=== PATIENT | female | born 1940 | race Asian ===

== ENCOUNTER 2018-04-05 11:08 | Inpatient (IN) | payer BC, OTHER ==
[~2018-04-05] VITALS: Ht 152.4 cm; Wt 56.0 kg
[2018-04-05 11:26] VITALS: Ht 152.4 cm; Wt 56.0 kg
[2018-04-05 11:59] LABS: PLATELET COUNT 362 x10^3mcL (130-400); RED CELL DISTRIBUTION WIDTH 13.4 % (11.5-14.5)
[2018-04-05 12:08] LABS: CALCIUM 10.5 mg/dL (8.5-10.1); CARBON DIOXIDE 17.5 mmol/L (21-32); CHLORIDE SERUM 102 mmol/L (98-107); CREATININE SERUM 1.4 mg/dL (0.6-1.0); GLUCOSE SERUM 232 mg/dL (74-106); POTASSIUM SERUM 4.2 mmol/L (3.5-5.1); SODIUM SERUM 137 mmol/L (136-145)
[2018-04-05 12:13] LABS: ALBUMIN 3.9 g/dL (3.4-5.0); ALKALINE PHOSPHATASE 205 U/L (46-116); ALT/SGPT 27 U/L (14-59); AST/SGOT 30 U/L (15-37); BILIRUBIN TOTAL 1.21 mg/dL (0.20-1.00); LIPASE 77 IU/L (73-393); TOTAL PROTEIN, SERUM 8.2 g/dL (6.4-8.2)
[2018-04-05 12:53] LABS: BAND NEUTROPHIL 45 % (0-10); MONOCYTE 5 % (0-7); SEGMENTED NEUTROPHILS 44 % (37-75)
[2018-04-05 12:54] LABS: PLATELET MORPHOLOGY PLATELETS NORMAL; rbc morphology (normal/abnorm) NORMAL (NORMAL)
[2018-04-05 16:34] LABS: UA SPECIFIC GRAVITY >=1.030 (1.005-1.035); microscopic required? YES; urine erythrocyte NEGATIVE (NEGATIVE)
[2018-04-05] MEDS ORDERED: ASPIRIN ADULT L81 M5 PO (18:30)
[2018-04-05] MEDS ORDERED: GOOD SENSE OMEP20 MG PO (18:30)
[2018-04-05] MEDS ORDERED: AMLODIPINE BESYL5 M2 PO (18:31)
[2018-04-05] MEDS ORDERED: PRAVACHOL20 MG PO (18:31)
[2018-04-05 18:42] LABS: MAGNESIUM 3.4 mg/dL (1.8-2.4); PHOSPHOROUS 6.3 mg/dL (2.5-4.9)
[2018-04-05 18:46] LABS: FREE T4 0.92 ng/dL (0.76-1.46); FREE THYROXINE INDEX 2.3 ug/dL (1.4-4.5); T3 TOTAL 0.73 ng/mL; T4(THYROXINE) 6.6 ug/dL (4.7-13.3)
[2018-04-05 19:02] VITALS: BP 99/53
[2018-04-05 20:12] LABS: CHOLESTEROL/HDL RATIO 2.6
[2018-04-06 00:06] VITALS: BP 92/50; BP 94/51
[2018-04-06 00:30] VITALS: BP 94/51
[2018-04-06 00:57] LABS: BASOPHIL % 0.1 % (0-2); PLATELET COUNT 189 x10^3mcL (130-400)
[2018-04-06 01:46] LABS: ALKALINE PHOSPHATASE 291 U/L (46-116); ALT/SGPT 37 U/L (14-59); AST/SGOT 98 U/L (15-37); BILIRUBIN TOTAL 0.63 mg/dL (0.20-1.00); CALCIUM 9.6 mg/dL (8.5-10.1); CARBON DIOXIDE 12.5 mmol/L (21-32); CHLORIDE SERUM 110 mmol/L (98-107); CREATININE SERUM 2.1 mg/dL (0.6-1.0); GLUCOSE SERUM 172 mg/dL (74-106); POTASSIUM SERUM 4.7 mmol/L (3.5-5.1); SODIUM SERUM 143 mmol/L (136-145)
[2018-04-06 01:53] LABS: ALBUMIN 2.4 g/dL (3.4-5.0); TOTAL PROTEIN, SERUM 5.6 g/dL (6.4-8.2)
[2018-04-06 02:55] VITALS: BP 86/49
[2018-04-06 03:55] VITALS: BP 103/70
[2018-04-06 04:45] VITALS: BP 65/52
== END 2018-04-06 10:23 | disposition expired | DRG 871 ==
LOC: ED 11:08 → IC 17:34 → DU 17:34 → IC 23:46
PROVIDERS: Emergency Medicine; Internal Medicine
PROC: 5A1935Z Respiratory Ventilation, Less than 24 Consecutive Hours (ICD-10-PCS; principal; 2018-04-06)
PROC: 0BH17EZ Insertion of Endotracheal Airway into Trachea, Via Natural or Artificial Opening (ICD-10-PCS; 2018-04-06)
PROC: 05HM33Z Insertion of Infusion Device into Right Internal Jugular Vein, Percutaneous Approach (ICD-10-PCS; 2018-04-06)
PROC: B543ZZZ Ultrasonography of Right Jugular Veins (ICD-10-PCS; 2018-04-06)
DX: A41.9 Sepsis, unspecified organism (principal); R65.21 Severe sepsis with septic shock; N17.0 Acute kidney failure with tubular necrosis; E43 Unspecified severe protein-calorie malnutrition; J69.0 Pneumonitis due to inhalation of food and vomit; N39.0 Urinary tract infection, site not specified; G93.1 Anoxic brain damage, not elsewhere classified; K56.41 Fecal impaction; I10 Essential (primary) hypertension; E86.0 Dehydration; E78.5 Hyperlipidemia, unspecified; R73.03 Prediabetes; K21.9 Gastro-esophageal reflux disease without esophagitis; R13.11 Dysphagia, oral phase; D75.1 Secondary polycythemia; E83.41 Hypermagnesemia; E83.39 Other disorders of phosphorus metabolism; Z66 Do not resuscitate; Z96.642 Presence of left artificial hip joint; Z68.27 Body mass index [BMI] 27.0-27.9, adult
CPT/HCPCS: 36556; 36600; 83880; 84439; J0696; J1642; J1720; J2270; J2370; J2405; J2543; J3370; J3490; J7030; J7040; J7050; J7060; Q0092; Q0162